=== PATIENT | female | born 1995 | race Hispanic/Latino ===

== ENCOUNTER 2017-02-09 19:56 | Emergency (ER) | payer OTHER ==
[~2017-02-09] VITALS: Ht 165.1 cm; Wt 86.4 kg
[2017-02-09 20:14] VITALS: BP 139/99; RESP 18; O2SAT 99
--- NOTE | 2017-02-09 21:03 | ED.REPORT ---
HPI-General Illness Date of Service Feb 09, 2017 ED Provider: Rene Beaver MD Patient is a healthy 21 year old female who presents to the ED complaining of a sore throat that began 3 days ago. Patient states that her symptoms were intermittently present for the past 2 days, but was present all day today. Patient reports pain with swallowing but she is able to swallow. Patient denies noting any abnormal lumps around her neck and she has not had any painful teeth. She denies a fever, chills, nasal congestion, rhinorrhea, or cough. Patient admits that she does suffer from springtime allergies. Nursing Notes Stated Complaint: SORE THROAT Chief Complaint: ENT & Mouth Nursing Notes Reviewed: Yes Allergies: Coded Allergies: No Known Allergies (Unverified , 02/09/17) Scheduled Loratadine (Claritin) 10 Mg Capsule 10 MG PO DAILY General Time Seen by MD: 21:02 Chief Complaint Sore throat Hx Obtained From: Patient Arrived By: Walk-in Sudden in Onset?: No Onset Occurred: 3 days ago Symptom Duration: Intermittent Quality: Painful Severity: Current: Moderate Severity: Maximum: Moderate Recent Healthcare: No recent doctor visit, No recent hospitalization Similar Sx Previous: No Past Medical History Past Medical History none reported Past Surgical History none reported Smoking History Unknown if Ever Smoker Social History Alcohol Use: "Social" (rare) Other Social History: Good social support, Local resident Ambulatory Status Independent Review of Systems Full Review of Systems Constitutional: Denies: Chills, Fever Ears / Nose / Throat: Reports: Sore throat, Throat pain, Denies: Mouth pain, Nasal congestion, Toothache Respiratory: Denies: Non-productive cough GI: Denies: Dysphagia (pain with swallowing) Allergy / Immune: Denies: Rhinorrhea, Sneezing Complete sys rev & neg: except as marked. Physical Exam Vital Signs Vital Signs Date Time Temp Pulse Resp B/P Pulse Ox O2 Delivery O2 Flow Rate FiO2 02/09/17 21:34 36.9 85 18 124/79 99 Room Air 02/09/17 20:14 36.5 97 18 139/99 99 Room Air Initial VS: Reviewed Skin: Warm, Dry, No cyanosis Neurologic: Alert, Oriented, Nonfocal Psychiatric: Mood/affect normal, Behavior normal General/Constitutional: Awake, Alert, No acute distress Head / Eyes: Normocephalic, PERRL, EOMI ENT: Airway patent, Pharynx NL Pharynx / Tonsils / Uvula: Negative: Tonsillar exudate L, Tonsillar exudate R pale nasal mucosa, no edema clearing throat during the interview Neck: Supple, No adenopathy, Non-tender Respiratory / Chest: Breath sounds NL, Breath sounds = bilat, No respiratory distress, No rales, No rhonchi, No wheezing Cardiovascular: Heart rate NL, Regular rhythm, Heart sounds NL, No murmurs Interpretation & Diagnostics Interpretation & Diagnostics: Rapid Bedside Strep: Negative Re-Eval/Medical Decision Med Decision/Clinical Course 21-year-old with sore throat primarily in the morning upon wakening and better during the day. This pattern is consistent with postnasal drip and seasonal allergy. She has not history of springtime and fall allergies that are just beginning to become active now. Begun with Flonase and Claritin. Discharged in stable condition. No indication of strep with a negative test no adenopathy no erythema no exudate no fever. No indication for antibiotics therefore. Discharged in stable condition. Time of Eval: 21:07 Patient Status: Condition improved Re-Evaluation/Progress Note: Her symptoms are likely due to either a virus or post-nasal drip. She will be prescribed medication for her allergies. Patient understands and agrees with the plan to be discharged home. Discharge instructions and follow-up discussed. All questions were addressed. Return to the ED warnings given. Counseled Regarding: Diagnosis, Need for follow-up, When/why to return to ED Discharge & Departure Primary Impression: Pharyngitis Pharyngitis/tonsillitis etiology: unspecified etiology Qualified Code: J02.9 - Acute pharyngitis, unspecified Additional Impression: Allergic rhinitis Allergic rhinitis type: unspecified Qualified Code: J30.9 - Allergic rhinitis, unspecified Disposition: Home Discharge Condition All VS Reviewed: Yes Condition: Stable Patient Instructions: Pharyngitis (ED), Allergic Rhinitis (ED) Additional Instructions: Began Flonase spray one spray each nostril twice daily for a week, then just once daily. Continue that through the month of March. It is available over-the- counter Claritin daily. Also available [id number] as generic loratadine. Follow-up with your doctor in the office. Return if any immediate issues. Referrals: Laura Alfredo MD (PCP) Scribe Attestation Portions of this note were transcribed by Melissa Egan. I, Dr. Beaver personally performed the history, physical exam and medical decision-making; I reviewed and confirmed the accuracy of the information in the transcribed note. Signed by: Aneesh Julian, 02/09/2017 [id number] copies to: Laura Alfredo MD, Christopher W MD Feb 09, 2017 21:03 Melissa Egan Feb 09, 2017 21:09
[2017-02-09] MEDS ORDERED: LORA10CA PO (21:12)
[2017-02-09 21:34] VITALS: BP 124/79; PULSE 85; RESP 18; O2SAT 99
== END 2017-02-09 21:38 | disposition home or self-care (01) ==
LOC: SED 19:56
DX: J02.9 Acute pharyngitis, unspecified (principal); J30.9 Allergic rhinitis, unspecified